=== PATIENT | female | born 1955 | race Caucasian/White ===

== ENCOUNTER 2017-02-28 07:08 | Day surgery (SDC) | payer BC ==
[2017-02-28] MEDS ORDERED: MVI, Adult with Vitamin K 10 ML, Thiamine 200 MG, Chromium/Copper/Mang/Selen/Zn 1 ML in... IV ONE ×4 (08:15)
[2017-02-28] MEDS ORDERED: fentaNYL 100 MCG/2 ML SDV ONE (08:38)
[2017-02-28] MEDS ORDERED: Midazolam 1 MG/ML 2 ML SDV ONE (08:38)
[2017-02-28] MEDS ORDERED: Propofol 200 MG/20 ML SDV ONE (08:38)
[2017-02-28] MEDS ORDERED: Glycopyrrolate 0.2 MG/ML 2 ML SYRINGE IVPUSH ONE (08:45)
[2017-02-28] MEDS ORDERED: Cyanocobalamin (Vitamin B12) 1,000 MCG/ML SDV IM ONE (08:45)
[2017-02-28] MEDS ORDERED: Lactated Ringers 1,000 ML IV SCH (09:30)
[2017-02-28 11:13] VITALS: BP 103/70
--- NOTE | 2017-03-03 12:17 | OR ---
DATE OF PROCEDURE: 02/28/2017 PREOPERATIVE DIAGNOSIS: Laryngopharyngeal dysphagia. POSTOPERATIVE DIAGNOSES: 1. Laryngopharyngeal dysphagia with no significant inflammation involving the pharynx, larynx, or upper esophageal sphincter. 2. Small marginal ulcer. OPERATIVE PROCEDURE: Upper GI endoscopy with biopsies of gastric pouch for CLOtest. ANESTHESIA: IV sedation. 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 She presents now with some dysphagia which she points to being in her neck and uppermost chest area. The plan is to proceed with upper GI endoscopy with biopsies and/or dilation as indicated. Potential risks including bleeding and perforation were discussed, and the patient wishes to proceed. DETAILS OF PROCEDURE: The patient was taken to the operating room and placed in a left lateral decubitus position. IV sedation was administered, after which the upper GI endoscope was passed orally through the length of the esophagus into the gastric pouch, from there through the gastrojejunostomy roughly 20 cm into the Maurisio limb. FINDINGS: Included a normal hypopharynx, larynx, upper esophageal sphincter, and esophageal body at the EG junction. No significant abnormalities were noted. She had a very small pouch. Just at the edge of the pouch distally, there was a small marginal ulcer with some white plaque over that consistent with some fibrinous exudate. No bleeding was seen. There was no stricturing and relatively little array of edema otherwise at the gastrojejunostomy. The visualized portion of the Maurisio limb was unremarkable. Biopsies were then obtained from the gastric pouch, sent for CLOtest for H. pylori. Minimal bleeding from the biopsy sites was seen and the procedure then concluded. The patient is already on omeprazole 40 mg a day. Given this, I think we will try her on some liquid Carafate 500 mg q.i.d. It would need to be liquid as a pill form would pass beyond the targeted area, i.e. the area around the gastric pouch prior to it dissolving. The patient's other problem at this point from an abdominal standpoint is quite a bit in the way of bloating. She has a fair bit of postprandial bloating especially. This would be suggestive of partial small bowel obstruction and the plan will be to obtain a CT scan of the abdomen and pelvis on Monday 03/12 (I am out of town next week), and we will see her that same day to see if there is any indication for diagnostic laparoscopy with possible lysis of adhesions and/or correction of a partial small bowel obstruction per se. Manuel Amor MD /[id number]
== END 2017-02-28 12:27 | disposition home or self-care (01) ==
LOC: JP.SDS 07:08
PROVIDERS: ATTEND Surgery
DX: R13.13 Dysphagia, pharyngeal phase (principal); K28.9 Gastrojejunal ulcer, unspecified as acute or chronic, without hemorrhage or perforation; I10 Essential (primary) hypertension; K21.9 Gastro-esophageal reflux disease without esophagitis; J45.909 Unspecified asthma, uncomplicated; F41.9 Anxiety disorder, unspecified; F32.9 Major depressive disorder, single episode, unspecified; Z88.8 Allergy status to other drugs, medicaments and biological substances; Z91.040 Latex allergy status; Z91.018 Allergy to other foods; Z98.84 Bariatric surgery status; E66.9 Obesity, unspecified
CPT/HCPCS: 43239; 87081; J2250; J2704; J3010; J3411; J3420; J7120

== ENCOUNTER 2018-02-13 06:52 | Day surgery (SDC) | payer BC, OTHER ==
[2018-02-13] MEDS ORDERED: Lactated Ringers 1,000 ML IV ONE (07:30)
[2018-02-13] MEDS ORDERED: fentaNYL 100 MCG/2 ML SDV ONE (07:48)
[2018-02-13] MEDS ORDERED: Propofol 200 MG/20 ML SDV ONE (07:48)
[2018-02-13] MEDS ORDERED: Midazolam 1 MG/ML 2 ML SDV ONE (07:48)
[2018-02-13] MEDS ORDERED: MVI, Adult with Vitamin K 10 ML, Thiamine 100 MG, Chromium/Copper/Mang/Selen/Zn 1 ML in... IV ONE ×4 (08:30)
[2018-02-13] MEDS ORDERED: Glycopyrrolate 0.2 MG/ML 2 ML SDV IVPUSH ONE (08:30)
[2018-02-13] MEDS ORDERED: Cyanocobalamin (Vitamin B12) 1,000 MCG/ML SDV IM ONE (09:00)
[2018-02-13 11:03] VITALS: BP 123/72
--- NOTE | 2018-02-17 12:41 | OR ---
DATE OF PROCEDURE: 02/13/2018 PREOPERATIVE DIAGNOSIS: Dysphagia, status post Maurisio-en-Y gastric bypass. POSTOPERATIVE DIAGNOSIS: Normal upper GI endoscopic examination, status post Maurisio-en-Y gastric bypass. OPERATIVE PROCEDURE: Upper GI endoscopy with dilation of gastrojejunostomy, (minimal change seen after dilation), (79110). ANESTHESIA: IV sedation. INDICATIONS FOR PROCEDURE: This is a 62-year-old, status post previous Maurisio-en-Y gastric bypass presenting with some dysphagia referable to the area of the gastrojejunostomy. The plan was to proceed with upper GI endoscopy with biopsies and/or dilation as indicated. Potential risks including bleeding and perforation were discussed, and the patient wishes to proceed. DESCRIPTION OF PROCEDURE: The patient was taken to the operating room and placed on the left lateral decubitus position. IV sedation was administered after which the upper GI endoscope was passed orally through the length of the esophagus into the gastric pouch and from there through the gastrojejunostomy roughly 20 cm into the Maurisio limb. Overall, the examination at this point was entirely normal. There were no areas of inflammation or stricturing. The gastrojejunostomy was widely opened. We did deploy a 54-Frisian balloon dilator which is a largest size available and this resulted in essentially no additional luminal dimension as this was already quite wide opened. At that point, the scope was withdrawn and the procedure then concluded. The patient may be having some esophageal spasm and recently been using Levsin 0.125 mg sublingually p.r.n. for these symptoms with some success and she was given a prescription for that to be following with Callie Curiel in 1 month and if she has additional GI problems in the interim, she was instructed to contact either our program in [place] or Dr. Schmitz in [place]. Manuel Amor MD /[id number]
== END 2018-02-13 11:43 | disposition home or self-care (01) ==
LOC: JP.SDS 06:52
PROVIDERS: ATTEND Surgery
DX: R13.10 Dysphagia, unspecified (principal); Z88.5 Allergy status to narcotic agent; Z88.6 Allergy status to analgesic agent; Z88.8 Allergy status to other drugs, medicaments and biological substances; Z91.018 Allergy to other foods; Z91.030 Bee allergy status; Z91.040 Latex allergy status; Z91.048 Other nonmedicinal substance allergy status
CPT/HCPCS: 43245; J2250; J2704; J3010; J3411; J3420; J7120; J3490

== ENCOUNTER 2023-04-14 06:47 | Day surgery (SDC) | payer MEDICARE, BC ==
[2023-04-14] MEDS ORDERED: Cyanocobalamin (Vitamin B12) 1,000 MCG/ML SDV IM ONE (07:30)
[2023-04-14] MEDS ORDERED: Propofol 200 MG/20 ML SDV ONE (07:55)
[2023-04-14] MEDS ORDERED: fentaNYL 50 MCG/ML SDV ONE (07:55)
[2023-04-14] MEDS ORDERED: Lactated Ringers 1,000 ML IV SCH (08:30)
[2023-04-14] MEDS ORDERED: Glycopyrrolate 0.2 MG/ML 2 ML SDV IVPUSH ONE (09:00)
[2023-04-14] MEDS ORDERED: MVI, Adult with Vitamin K 10 ML, Thiamine 200 MG, Zinc/Copper/Manganese/Selenium 1 ML i... IV ONE ×4 (09:00)
[2023-04-14 10:32] VITALS: BP 130/55; PULSE 63
== END 2023-04-14 11:21 | disposition home or self-care (01) ==
LOC: JP.SDS 06:47
PROVIDERS: ATTEND Surgery
DX: R14.0 Abdominal distension (gaseous) (principal); R10.13 Epigastric pain; Z98.84 Bariatric surgery status; Z88.5 Allergy status to narcotic agent; Z88.8 Allergy status to other drugs, medicaments and biological substances; Z91.040 Latex allergy status
CPT/HCPCS: 43235; J2704; J3010; J3411; J3420; J7120; J3490

== ENCOUNTER 2023-04-22 07:00 | Inpatient (IN) | payer MEDICARE, BC ==
[~2023-04-22 07:00] MED LIST: Bupivacaine 0.5% 50 ML MDV ONE; Lidocaine 1% with EPINEPHrine 1:100,000 50 ML MDV ONE; Meropenem 500 MG SDV ONE
[2023-04-22] MEDS ORDERED: Albuterol/Ipratropium 3.0-0.5 MG/3 ML Neb Soln NEB ONE (07:30)
[2023-04-22] MEDS ORDERED: cefOXitin 2 GM in Sodium Chloride 0.9% 50 ML IV ONE (07:30)
[2023-04-22] MEDS ORDERED: Dextrose 5%-Lactated Ringers 1,000 ML IV SCH (07:30)
[2023-04-22] MEDS ORDERED: Scopolamine 1.5 MG Transdermal Patch TOP ONE (07:30)
[2023-04-22] MEDS ORDERED: Naloxone 0.4 MG/ML SDV IV PRN (09:00)
[2023-04-22] MEDS ORDERED: Ketamine 500 MG/5 ML MDV IV SCH (09:15)
[2023-04-22] MEDS ORDERED: Ketamine 13 MG in Sodium Chloride 0.9% 19.87 ML IV SCH (09:15)
[2023-04-22] MEDS ORDERED: Ropivacaine 40 ML, dexAMETHasone 8 MG, EPINEPHrine 0.4 MG, Sodium Chloride 0.9% 37.6 ML NERVRT SCH ×4 (09:15)
[2023-04-22] MEDS ORDERED: Ondansetron 4 MG/2 ML SDV ONE (09:38)
[2023-04-22] MEDS ORDERED: Glycopyrrolate 0.2 MG/ML 5 ML MDV ONE (09:38)
[2023-04-22] MEDS ORDERED: Rocuronium 50 MG/5 ML Vial ONE (09:38)
[2023-04-22] MEDS ORDERED: Neostigmine Methylsulfate 1 MG/ML 5 ML Syringe ONE (09:38)
[2023-04-22] MEDS ORDERED: Dexamethasone 4 MG/ML SDV ONE (09:38)
[2023-04-22] MEDS ORDERED: Succinylcholine 200 MG/10 ML MDV ONE (09:38)
[2023-04-22] MEDS ORDERED: Propofol 200 MG/20 ML SDV ONE (09:38)
[2023-04-22] MEDS ORDERED: fentaNYL 250 MCG/5 ML SDV ONE (09:38)
[2023-04-22] MEDS: HYDROmorphone/Normal Saline 6 MG/30 ML PCA Vial IV PRN (11:12)
[2023-04-22] MEDS ORDERED: Sugammadex Sodium 200 MG/2 ML VIAL ONE (11:27)
[2023-04-22] MEDS ORDERED: 50% Dextrose in Water 50 ML Syringe IVPUSH PRN ×2 (11:52→13:00)
[2023-04-22] MEDS ORDERED: Glucagon,Human Recombinant 1 MG Vial IM PRN ×2 (11:52→13:00)
[2023-04-22] MEDS ORDERED: Insulin Lispro 100 Unit/ML 3 ML KwikPen SUBCUT ONE (12:15)
[2023-04-22] MEDS ORDERED: Lactated Ringers 1,000 ML IV SCH (12:45)
[2023-04-22] MEDS ORDERED: hydrOXYzine HCL 100 MG/2 ML SDV IM PRN (13:00)
[2023-04-22] MEDS ORDERED: Ondansetron 4 MG/2 ML SDV IVPUSH PRN (13:00)
[2023-04-22] MEDS ORDERED: Metoclopramide 10 MG/2 ML SDV IVPUSH PRN (13:00)
[2023-04-22] MEDS ORDERED: diphenhydrAMINE 50 MG/ML SDV IVPUSH PRN (13:00)
[2023-04-22] MEDS ORDERED: Albuterol/Ipratropium 3.0-0.5 MG/3 ML Neb Soln INH PRN (13:00)
[2023-04-22] MEDS ORDERED: Labetalol 20 MG/4 ML Syringe IVPUSH PRN (13:00)
[2023-04-22] MEDS ORDERED: Acetaminophen 500 MG Tab PO PRN (14:00)
[2023-04-22] MEDS ORDERED: Pantoprazole 40 MG Vial IVPUSH SCH (14:00)
[2023-04-22] MEDS: Sodium Ferric Gluconate Cmplex 250 MG in Sodium Chloride 0.9% 100 ML IV SCH (14:02)
[2023-04-22] MEDS: Albuterol/Ipratropium 3.0-0.5 MG/3 ML Neb Soln INH SCH ×2 (15:08→20:55)
[2023-04-22] MEDS: Insulin Lispro 100 Unit/ML 3 ML KwikPen SUBCUT SCH ×2 (16:03→22:07)
[2023-04-22] MEDS: Acetaminophen 500 MG Tab PO SCH ×2 (16:36→17:13)
[2023-04-22] MEDS: cefOXitin 2 GM in Sodium Chloride 0.9% 50 ML IV SCH ×3 (17:13→21:13)
[2023-04-22] MEDS: MVI, Adult with Vitamin K 10 ML, Thiamine 200 MG, Zinc/Copper/Manganese/Selenium 1 ML i... IV SCH ×4 (18:40)
[2023-04-22] MEDS: Oxybutynin 5 MG Tab PO SCH (20:49)
[2023-04-22] MEDS: SUMAtriptan 50 MG Tab PO PRN (23:16)
[2023-04-23] MEDS: Acetaminophen 500 MG Tab PO SCH ×3 (01:09→18:30)
[2023-04-23] MEDS: Cyclobenzaprine 10 MG Tab PO PRN ×2 (01:11→15:43)
[2023-04-23] MEDS: Insulin Lispro 100 Unit/ML 3 ML KwikPen SUBCUT SCH ×4 (04:33→21:19)
[2023-04-23] MEDS: cefOXitin 2 GM in Sodium Chloride 0.9% 50 ML IV SCH ×2 (04:34→09:02)
[2023-04-23 04:47] LABS: BASOPHILS PERCENT AUTO 0.1 % (0.1-1.3); HEMATOCRIT 36.4 % (34.3-46.0); HEMOGLOBIN 11.9 g/dL (11.2-15.5); IMMATURE GRAN ABSOLUTE AUTO 0.07 K/uL (0.00-0.23); IMMATURE GRAN PERCENT AUTO 0.5 % (0.0-0.7); LYMPHOCYTES ABSOLUTE AUTO 1.01 K/uL (0.8-3.3); LYMPHOCYTES PERCENT AUTO 7.3 % (11.4-47.7); MEAN CORPUSCULAR HEMOGLOBIN 29.8 pg (31.6-35.5); MEAN CORPUSCULAR HGB CONC 32.7 g/dL (31.6-35.5); MONOCYTES ABSOLUTE AUTO 0.82 K/uL (0.20-0.90); MONOCYTES PERCENT AUTO 5.9 % (3.3-12.6); NEUTROPHILS ABSOLUTE AUTO 11.99 K/uL (1.0-7.6); NEUTROPHILS PERCENT AUTO 86.2 % (40.0-78.1); PLATELET COUNT,PLT 247 K/uL (130-375); WHITE BLOOD CELL COUNT,WBC 13.9 K/uL (3.2-11.0)
[2023-04-23 05:16] LABS: BASOPHILS ABSOLUTE AUTO 0.02 K/uL (0.00-0.10)
[2023-04-23 05:20] LABS: ALANINE AMINOTRANSFERASE,ALT 28 U/L (12-78); ALBUMIN 2.6 g/dL (3.4-5.0); ALKALINE PHOSPHATASE 176 U/L (46-116); ANION GAP 6.7 mmol/L (5.0-14.0); ASPARTATE AMNIOTRANSFERASE,AST 21 U/L (15-37); BILIRUBIN TOTAL 0.4 mg/dL (0.2-1.0); BLOOD UREA NITROGEN,BUN 14 mg/dL (7-18); CALCIUM 8.1 mg/dL (8.5-10.1); CARBON DIOXIDE,CO2 27 mmol/L (21-32); CHLORIDE,CL 106 mmol/L (100-108); ESTIMATED GFR 61 mL/min (>60); GLUCOSE RANDOM 128 mg/dL (74-106); MAGNESIUM 1.9 mg/dL (1.8-2.4); PHOSPHORUS 4.9 mg/dL (2.5-4.9); POTASSIUM,K 4.4 mmol/L (3.6-5.2); PRO B-TYPE NATRIUR PEPT,BNPPRO 635 pg/mL (5-125); PROTEIN TOTAL,TP 5.3 g/dL (6.4-8.2); SODIUM,NA 140 mmol/L (140-148)
[2023-04-23] MEDS ORDERED: Ondansetron 4 MG Tab.DIS PO PRN (07:00)
[2023-04-23] MEDS ORDERED: Dextrose 5%-Lactated Ringers 1,000 ML IV SCH (07:00)
[2023-04-23] MEDS: Albuterol/Ipratropium 3.0-0.5 MG/3 ML Neb Soln INH SCH ×4 (07:01→21:17)
[2023-04-23] MEDS: Oxybutynin 5 MG Tab PO SCH ×2 (08:58→21:18)
[2023-04-23] MEDS: SCOPOLAMINE PATCH CHECK TOP SCH (08:58)
[2023-04-23] MEDS: Docusate Sodium 100 MG Cap PO SCH ×2 (08:58→21:17)
[2023-04-23] MEDS: Bisacodyl 5 MG Tab PO SCH ×2 (08:58→21:17)
[2023-04-23] MEDS ORDERED: Celecoxib 200 MG Cap PO SCH (09:00)
[2023-04-23] MEDS: Lactated Ringers 1,000 ML IV SCH (09:02)
[2023-04-23] MEDS: Pantoprazole 40 MG Tab.CR PO SCH (11:41)
[2023-04-23] MEDS: Sodium Ferric Gluconate Cmplex 250 MG in Sodium Chloride 0.9% 100 ML IV SCH (13:58)
[2023-04-23] MEDS: MVI, Adult with Vitamin K 10 ML, Thiamine 200 MG, Zinc/Copper/Manganese/Selenium 1 ML i... IV SCH ×4 (18:15)
[2023-04-23] MEDS: HYDROmorphone/Normal Saline 6 MG/30 ML PCA Vial IV PRN (19:34)
[2023-04-24] MEDS: Acetaminophen 500 MG Tab PO SCH ×3 (01:05→17:54)
[2023-04-24 04:17] LABS: HEMATOCRIT 33.2 % (34.3-46.0); HEMOGLOBIN 10.8 g/dL (11.2-15.5); MEAN CORPUSCULAR HEMOGLOBIN 29.8 pg (31.6-35.5); MEAN CORPUSCULAR HGB CONC 32.5 g/dL (31.6-35.5); MEAN CORPUSCULAR VOLUME 91.5 fL (81.4-99.0); RED BLOOD CELL COUNT 3.63 M/uL (3.77-5.24); WHITE BLOOD CELL COUNT,WBC 9.9 K/uL (3.2-11.0)
[2023-04-24] MEDS: Lactated Ringers 1,000 ML IV SCH (04:18)
[2023-04-24] MEDS: Insulin Lispro 100 Unit/ML 3 ML KwikPen SUBCUT SCH ×4 (04:41→21:39)
[2023-04-24 04:44] LABS: A/G RATIO 0.9 (1.2-2.2); ALANINE AMINOTRANSFERASE,ALT 29 U/L (12-78); ALBUMIN 2.4 g/dL (3.4-5.0); ALKALINE PHOSPHATASE 147 U/L (46-116); ANION GAP 5.1 mmol/L (5.0-14.0); ASPARTATE AMNIOTRANSFERASE,AST 32 U/L (15-37); BILIRUBIN TOTAL 0.2 mg/dL (0.2-1.0); BLOOD UREA NITROGEN,BUN 13 mg/dL (7-18); CALCIUM 7.8 mg/dL (8.5-10.1); CARBON DIOXIDE,CO2 29 mmol/L (21-32); CHLORIDE,CL 106 mmol/L (100-108); ESTIMATED GFR 61 mL/min (>60); GLUCOSE RANDOM 90 mg/dL (74-106); MAGNESIUM 1.8 mg/dL (1.8-2.4); PHOSPHORUS 3.5 mg/dL (2.5-4.9); POTASSIUM,K 4.2 mmol/L (3.6-5.2); PRO B-TYPE NATRIUR PEPT,BNPPRO 583 pg/mL (5-125); PROTEIN TOTAL,TP 5.1 g/dL (6.4-8.2); SODIUM,NA 140 mmol/L (140-148)
[2023-04-24] MEDS: Albuterol/Ipratropium 3.0-0.5 MG/3 ML Neb Soln INH SCH ×4 (07:25→20:32)
[2023-04-24] MEDS: Pantoprazole 40 MG Tab.CR PO SCH (07:44)
[2023-04-24] MEDS: oxyCODONE 5 MG Tab PO PRN ×2 (08:55→17:57)
[2023-04-24] MEDS: Docusate Sodium 100 MG Cap PO SCH ×2 (08:56→20:28)
[2023-04-24] MEDS: Bisacodyl 5 MG Tab PO SCH ×2 (08:56→20:27)
[2023-04-24] MEDS: Oxybutynin 5 MG Tab PO SCH ×2 (08:56→20:28)
[2023-04-24] MEDS: SCOPOLAMINE PATCH CHECK TOP SCH (09:00)
[2023-04-24] MEDS ORDERED: Cyanocobalamin (Vitamin B12) 1,000 MCG/ML SDV IM ONE (09:00)
[2023-04-24] MEDS: Cyclobenzaprine 10 MG Tab PO PRN (14:21)
[2023-04-25] MEDS: Acetaminophen 500 MG Tab PO SCH ×2 (02:27→09:09)
[2023-04-25 04:17] LABS: HEMOGLOBIN 11.7 g/dL (11.2-15.5); MEAN CORPUSCULAR HEMOGLOBIN 29.8 pg (31.6-35.5); MEAN CORPUSCULAR HGB CONC 32.5 g/dL (31.6-35.5); MEAN CORPUSCULAR VOLUME 91.8 fL (81.4-99.0); RED BLOOD CELL COUNT 3.92 M/uL (3.77-5.24); WHITE BLOOD CELL COUNT,WBC 7.4 K/uL (3.2-11.0)
[2023-04-25] MEDS: Insulin Lispro 100 Unit/ML 3 ML KwikPen SUBCUT SCH ×2 (04:27→10:08)
[2023-04-25 04:44] LABS: A/G RATIO 0.8 (1.2-2.2); ALANINE AMINOTRANSFERASE,ALT 29 U/L (12-78); ALBUMIN 2.4 g/dL (3.4-5.0); ALKALINE PHOSPHATASE 147 U/L (46-116); ASPARTATE AMNIOTRANSFERASE,AST 32 U/L (15-37); BILIRUBIN TOTAL 0.5 mg/dL (0.2-1.0); BLOOD UREA NITROGEN,BUN 10 mg/dL (7-18); CALCIUM 8.2 mg/dL (8.5-10.1); CARBON DIOXIDE,CO2 33 mmol/L (21-32); CHLORIDE,CL 105 mmol/L (100-108); ESTIMATED GFR 61 mL/min (>60); GLUCOSE RANDOM 82 mg/dL (74-106); MAGNESIUM 1.8 mg/dL (1.8-2.4); PHOSPHORUS 3.5 mg/dL (2.5-4.9); POTASSIUM,K 4.1 mmol/L (3.6-5.2); PRO B-TYPE NATRIUR PEPT,BNPPRO 505 pg/mL (5-125); PROTEIN TOTAL,TP 5.4 g/dL (6.4-8.2); SODIUM,NA 143 mmol/L (140-148)
[2023-04-25] MEDS: SUMAtriptan 50 MG Tab PO PRN (05:28)
[2023-04-25 05:46] LABS: ANION GAP 9.1 mmol/L (5.0-14.0)
[2023-04-25] MEDS: Albuterol/Ipratropium 3.0-0.5 MG/3 ML Neb Soln INH SCH (07:04)
[2023-04-25] MEDS: Pantoprazole 40 MG Tab.CR PO SCH (07:50)
[2023-04-25] MEDS: Docusate Sodium 100 MG Cap PO SCH (09:08)
[2023-04-25] MEDS: Bisacodyl 5 MG Tab PO SCH (09:08)
[2023-04-25] MEDS: Oxybutynin 5 MG Tab PO SCH (09:09)
[2023-04-25 10:44] VITALS: BP 139/75; PULSE 80
== END 2023-04-25 10:25 | disposition home or self-care (01) | DRG 327 ==
LOC: JP.SDSSCHI 07:00 → JP.MS 11:20
PROVIDERS: ADMIT Surgery; ATTEND Surgery
PROC: 5A09357 Assistance with Respiratory Ventilation, Less than 24 Consecutive Hours, Continuous Positive Airway Pressure (ICD-10-PCS; principal; 2023-04-22)
PROC: 0D160ZA Bypass Stomach to Jejunum, Open Approach (ICD-10-PCS; 2023-04-22)
PROC: 0DQ80ZZ Repair Small Intestine, Open Approach (ICD-10-PCS; 2023-04-22)
PROC: 0WBF0ZX Excision of Abdominal Wall, Open Approach, Diagnostic (ICD-10-PCS; 2023-04-22)
PROC: 3E0M05Z Introduction of Adhesion Barrier into Peritoneal Cavity, Open Approach (ICD-10-PCS; 2023-04-22)
DX: K56.51 Intestinal adhesions [bands], with partial obstruction (principal); C64.1 Malignant neoplasm of right kidney, except renal pelvis; C64.2 Malignant neoplasm of left kidney, except renal pelvis; D17.5 Benign lipomatous neoplasm of intra-abdominal organs; G47.33 Obstructive sleep apnea (adult) (pediatric); N28.1 Cyst of kidney, acquired; D63.1 Anemia in chronic kidney disease; E53.8 Deficiency of other specified B group vitamins; J45.909 Unspecified asthma, uncomplicated; K21.9 Gastro-esophageal reflux disease without esophagitis; E11.65 Type 2 diabetes mellitus with hyperglycemia; E78.00 Pure hypercholesterolemia, unspecified; G47.00 Insomnia, unspecified; G43.909 Migraine, unspecified, not intractable, without status migrainosus; F32.9 Major depressive disorder, single episode, unspecified; E11.40 Type 2 diabetes mellitus with diabetic neuropathy, unspecified; R79.89 Other specified abnormal findings of blood chemistry; I12.9 Hypertensive chronic kidney disease with stage 1 through stage 4 chronic kidney disease, or unspecified chronic kidney disease; N18.31 Chronic kidney disease, stage 3a; Z96.653 Presence of artificial knee joint, bilateral; Z20.822 Contact with and (suspected) exposure to COVID-19; Z90.49 Acquired absence of other specified parts of digestive tract; Z87.19 Personal history of other diseases of the digestive system; Z98.84 Bariatric surgery status; Z47.89 Encounter for other orthopedic aftercare; Z98.49 Cataract extraction status, unspecified eye; Z79.82 Long term (current) use of aspirin; Z79.899 Other long term (current) drug therapy; Z87.891 Personal history of nicotine dependence; Z88.6 Allergy status to analgesic agent; Z91.030 Bee allergy status; Z91.02 Food additives allergy status; Z91.040 Latex allergy status; Z88.5 Allergy status to narcotic agent; Z91.09 Other allergy status, other than to drugs and biological substances; Z97.8 Presence of other specified devices; Z99.81 Dependence on supplemental oxygen
CPT/HCPCS: 36415; 74240; 74240-26; 80053; 82947; 83735; 83880; 84100; 85025; 85027; 88304; 88307; 94640; A9270-GY; C9113; J0131; J0171; J0330; J0694; J1100; J1170; J1815; J2020; J2185; J2405; J2704; J2710; J2795; J2916; J3010; J3411; J3420; J3490; J7120; J7121; J7620; U0002